=== PATIENT | female | born 1955 | race Caucasian/White ===

== ENCOUNTER → 2021-09-02 | Day surgery (SDC) | payer MEDICARE, OTHER ==
[~2021-09-02] VITALS: Ht 162.6 cm; Wt 71.2 kg
[~2021-09-02] MED LIST: ASCORBIC ACID500 MG PO; ASPIRIN325 MG PO; CALCIUM500 MG PO; LOVAZA1 GM PO; NORCO 5/3251 EACH PO; ONE DAILY FOR1 EAC2 PO; SIMVASTATIN20 MG PO; VITAMIN D350 MC3 PO; ZINC50 MG PO
[2021-09-02 12:37] LABS: HCT 44.2 % (37.0-47.0); HGB 14.4 g/dl (12.5-16.0); MCH 30.1 pg (25.0-31.0); MCHC 32.6 g/dL (32.0-36.0); MCV 92.3 fL (78.0-100.0); MPV 9.8 fL (6.0-9.5); RBC 4.79 M/uL (4.20-5.40); RDW 11.9 % (11.5-14.0); WBC 5.8 K/uL (4.0-10.5)
[2021-09-02 14:07] LABS: ALBUMIN 4.1 g/dL (3.4-5.0); BILIRUBIN - TOTAL 0.7 mg/dL (0.2-1.0); BUN/CREAT RATIO (CALC) 21.6 RATIO; CREATININE 0.74 mg/dL (0.51-0.95); GLOBULIN (CALCULATION) 3.5 g/dL; POTASSIUM 4.2 mmol/L (3.5-5.1); TOTAL PROTEIN 7.6 g/dL (6.4-8.2)
== END | disposition home or self-care (01) ==
LOC: FAS 10:58
PROVIDERS: Orthopaedic Surgery
DX: S83.231A Complex tear of medial meniscus, current injury, right knee, initial encounter (principal); M17.11 Unilateral primary osteoarthritis, right knee; M79.4 Hypertrophy of (infrapatellar) fat pad; E78.00 Pure hypercholesterolemia, unspecified; K21.9 Gastro-esophageal reflux disease without esophagitis; X58.XXXA Exposure to other specified factors, initial encounter; Z79.899 Other long term (current) drug therapy
CPT/HCPCS: 36415; 71045; 80053; 93005; J1100; J1885; J2250; J2405; J2704; J3010; J7120